=== PATIENT | male | born 1990 | race Two or more races ===

== ENCOUNTER 2016-07-28 11:13 | Emergency (ER) | payer MEDICAID, OTHER ==
[~2016-07-28] VITALS: Ht 175.3 cm; Wt 93.0 kg
[2016-07-28 11:44] VITALS: BP 150/81
[2016-07-28] MEDS ORDERED: BACITRACIN TOP OINT 1 UD PKG TOP ONE (12:45)
[2016-07-28] MEDS ORDERED: TETANUS-DIPTH-ACEL PERTUSSIS 0.5ML SYRG IM ONE (12:45)
== END 2016-07-28 13:57 | disposition home or self-care (01) ==
LOC: ER 11:13
DX: S50.312A Abrasion of left elbow, initial encounter (principal); Z23 Encounter for immunization; V89.2XXA Person injured in unspecified motor-vehicle accident, traffic, initial encounter; Y93.89 Activity, other specified; Y99.8 Other external cause status; Y92.488 Other paved roadways as the place of occurrence of the external cause
CPT/HCPCS: 73080; 73130; 90471; 90715